=== PATIENT | female | born 1970 ===

== ENCOUNTER 2019-08-10 05:45 | Day surgery (SDC) | payer OTHER ==
[~2019-08-10 05:45] MED LIST: OLMESARTAN-HCT1 EACH PO; TIROSINT25 MCG PO
[2019-08-10] MEDS ORDERED: RECTICARE30 GM TOP (08:42)
[2019-08-10] MEDS ORDERED: PERCOCET 5-3251 EACH PO (08:42)
== END 2019-08-10 13:55 | disposition home or self-care (01) ==
LOC: CIR.AMB 05:45
DX: K60.3 Anal fistula (principal)